=== PATIENT | male | born 1935 | race Caucasian/White ===

== ENCOUNTER → 2019-04-19 | Outpatient (CLI) | payer MEDICARE, OTHER ==
[~2019-04-19] MED LIST: CARB1TAB19 PO; LISI-552 PO; NAPR-1084 PO; PROP20TA5 PO; SIMV20TA3 PO; TAMS0.4C98 PO; [UNRECOGNIZED DRUG - CODE] PO
--- NOTE | 2019-04-19 13:02 | Diagnostic Imaging Report ---
Indication: Prior history of throat trauma, complaining of dysphagia. Study was performed in conjunction with speech pathology. Videofluoroscopy was performed during swallowing of barium in multiple consistencies. 1 minute and 59 seconds of fluoroscopy was utilized. Patient ingested thin as well as nectar and applesauce consistency. Patient also ingested banana, meat and cracker consistency. There is residue noted with all swallows predominantly in the vallecula. This did eventually clear with multiple swallows. Poor epiglottic tilt is seen. There was an episode of penetration and aspiration during the swallowing of thin liquid through a straw. No spontaneous cough was initiated. Impression: Moderate vallecular residue with all consistencies. There was an episode of aspiration during swallowing of thin liquid through a straw. No spontaneous cough was observed. Dictated by: Dictated on workstation # [id number]
== END ==
LOC: RAD 10:08 → EDUNIT# 11:00
PROVIDERS: ATTEND Surgery
DX: R13.10 Dysphagia, unspecified (principal); Z87.828 Personal history of other (healed) physical injury and trauma
CPT/HCPCS: 74230

== ENCOUNTER 2019-04-20 11:00 | Outpatient (CLI) | payer MEDICARE, OTHER ==
[~2019-04-20] VITALS: Ht 175.3 cm; Wt 70.8 kg
[2019-04-20] MEDS ORDERED: PROP20TA5 PO (12:28)
[2019-04-20] MEDS ORDERED: LISI-552 PO (12:28)
[2019-04-20] MEDS ORDERED: NAPR-1084 PO (12:28)
[2019-04-20] MEDS ORDERED: CARB1TAB19 PO (12:28)
[2019-04-20] MEDS ORDERED: [UNRECOGNIZED DRUG - CODE] PO (12:28)
[2019-04-20] MEDS ORDERED: TAMS0.4C98 PO (12:28)
[2019-04-20] MEDS ORDERED: SIMV20TA3 PO (12:28)
== END 2019-04-20 12:29 | disposition home or self-care (01) ==
LOC: PREOP 11:00
PROVIDERS: ATTEND Surgery
DX: Z01.818 Encounter for other preprocedural examination (principal)

== ENCOUNTER → 2022-09-19 | Outpatient (CLI) | payer MEDICARE ==
[~2022-09-19] MED LIST changes: -CARB1TAB19 PO; +CARB1TAB32 PO; -LISI-552 PO; +LISI20TA26 PO; +SIMV20TA26 PO; -SIMV20TA3 PO; -TAMS0.4C98 PO; +TMSL.4C PO
== END ==
LOC: CARDFS 13:48
PROVIDERS: ATTEND Internal Medicine Cardiovascular Disease
DX: I08.0 Rheumatic disorders of both mitral and aortic valves (principal); I11.9 Hypertensive heart disease without heart failure; I25.10 Atherosclerotic heart disease of native coronary artery without angina pectoris
CPT/HCPCS: 93306

== ENCOUNTER → 2022-10-21 | Outpatient (CLI) | payer MEDICARE ==
[~2022-10-21] VITALS: Ht 175 cm; Wt 68.0 kg
[~2022-10-21] MED LIST changes: +CATHETER FLUSH 10 ML SYR IVP PRN; +REGADENOSON 0.4 MG/5 ML SYR (LEXISCAN) IV ONE
[2022-10-21 09:14] VITALS: BP 171/74
--- NOTE | 2022-10-21 11:10 | Cardiology Stress Test Report ---
Stress Test Report Date of Procedure/Referring: Date of Procedure: Oct 21, 2022 PCP Harriet Fung Aprn Admitting Physician Admitting Physician: Attending Physician: Sherrill Ross Baseline Heart Rate: 49 Baseline Blood Pressure: Blood Pressure Systolic: 171 Blood Pressure Diastolic: 74 Baseline Vitals Vital Signs Date Time Temp Pulse Resp B/P (MAP) Pulse Ox O2 Delivery O2 Flow Rate FiO2 10/21/22 09:14 49 171/74 (106) Baseline EKG: Baseline EKG: NSR Summary After explaining the procedure to the patient, he signed a consent and then brought to the stress nuclear laboratory. Patient received 0.4 mg Lexiscan for stress test, ECG, heart rate and blood pressure were monitored continuously. Resting and stress dose of radio tracer were injected, imaging was acquired and reviewed in short axis, horizontal long axis and vertical long axis views. TID: 1.07 SSS: 4 SDS: 2 EF: 60 1. Patient tolerated Lexiscan well 2. Extracardiac attenuation with increased gastric uptake, mild decrease uptake at the inferoapical segment with mild reversibility. Overall there is no significant ischemia or infarction on SPECT images 3. Normal left ventricular size, ejection fraction 60% Copy Copies To 1: [facility]/ALY YOUNG MD Oct 21, 2022 11:10
== END ==
LOC: CARD 07:57
PROVIDERS: ATTEND Physician Assistant
DX: I47.20 Ventricular tachycardia, unspecified (principal)
CPT/HCPCS: 78452; 93017; A9502

== ENCOUNTER → 2023-09-15 | Outpatient (CLI) | payer MEDICARE ==
[~2023-09-15] MED LIST changes: -CATHETER FLUSH 10 ML SYR IVP PRN; -REGADENOSON 0.4 MG/5 ML SYR (LEXISCAN) IV ONE
== END ==
LOC: CARD 13:51
PROVIDERS: ATTEND Internal Medicine Cardiovascular Disease
DX: I11.9 Hypertensive heart disease without heart failure (principal); I34.0 Nonrheumatic mitral (valve) insufficiency; I35.1 Nonrheumatic aortic (valve) insufficiency; I25.10 Atherosclerotic heart disease of native coronary artery without angina pectoris
CPT/HCPCS: 93306